=== PATIENT | female | born 1940 | race Caucasian/White ===

== ENCOUNTER 2020-06-27 11:54 | Outpatient (CLI) | payer MEDICARE, OTHER ==
--- NOTE | 2020-06-27 14:49 | RAD ---
PA AND LATERAL VIEWS CHEST: Date: 06/27/2020 HISTORY: Preoperative evaluation. FINDINGS: The heart size is borderline. No lobar consolidation, pneumothoraces, or pleural effusions are seen. There is fullness in the left hilar region consistent with hilar lymphadenopathy noted on the PET/CT of 06/13/2020. IMPRESSION: No acute process. POS: OFF
[2020-06-27 16:17] LABS: #Eosinphils 0.2 10x3/uL (0.0-0.5); #Monocytes 0.4 10x3/uL (0.0-1.1); #Neutrophils 2.4 10x3/uL (1.5-8.4); %Basophils 0.6 % (0.0-2.0); %Eosinophils 3.4 % (0.0-6.0); %Lymphocytes 35.6 % (18.0-47.0); %Monocytes 8.7 % (0.0-10.0); %Neutrophils 51.3 % (40.0-75.0); Hemoglobin 11.8 g/dL (12.0-16.0); Mean Corpuscular HGB CONC 32.1 G/DL (32.0-36.0); Mean Corpuscular Hemoglobin 31.9 PG (27.0-33.0); Mean Corpuscular Volume 99.5 fl (80.0-100.0); Mean Platelet Volume 9.2 fl (7.4-10.4); Platelet Count 220 10x3/uL (130-400); RBC Distribution Width 13.6 % (11.5-14.5); White Blood Cell (WBC) Count 4.7 10x3/uL (4.5-11.0)
[2020-06-27 16:24] LABS: Anion Gap 15 mmol/L (10-20); BUN (Urea Nitrogen) 11 mg/dL (9.8-20.1); Calc. Creatinine Clearance 0 mL/min (70-130); Calcium 9.1 mg/dL (7.8-10.44); Carbon Dioxide 24 mmol/L (23-31); Chloride 104 mmol/L (98-107); Estimated GFR-MDRD 58; Glucose 131 mg/dL (83-110); Potassium 3.9 mmol/L (3.5-5.1); Sodium 139 mmol/L (136-145)
[2020-06-28 12:58] LABS: SARS-CoV-2 MS2 Positive; SARS-CoV-2 N Gene Negative; SARS-CoV-2 S Gene Negative; SARS-CoV-2 by NAA Not Detected (NotDetected); SARS-CoV-2 orf1ab Negative
--- NOTE | 2020-06-28 21:07 | EKG ---
Test Reason : PREOP Blood Pressure : / mmHG Vent. Rate : 086 BPM Atrial Rate : 202 BPM P-R Int : 000 ms QRS Dur : 086 ms QT Int : 406 ms P-R-T Axes : 000 054 152 degrees QTc Int : 485 ms Atrial fibrillation Low voltage QRS Cannot rule out Anterior infarct , age undetermined Abnormal ECG No previous ECGs available Confirmed by Иван MAHARAJ ([id number]) on 06/28/2020 9:07:09 PM Referred By: Ramila THAKKAR Confirmed By:Иван MAHARAJ
== END 2020-06-27 11:55 | disposition home or self-care (01) ==
LOC: LABBT 11:54
PROVIDERS: ATTEND Specialist
DX: Z01.818 Encounter for other preprocedural examination (principal); Z20.828 Contact with and (suspected) exposure to other viral communicable diseases
CPT/HCPCS: 71046; 80048; 85025; 93005; U0003; 87635; 93010

== ENCOUNTER 2020-06-30 10:12 | Day surgery (SDC) | payer MEDICARE, OTHER ==
[2020-06-29 15:14] VITALS: BMI 31.1
[2020-06-30] MEDS ORDERED: Acetaminophen 500 MG TAB ONE (11:15)
[2020-06-30] MEDS ORDERED: Ketorolac Tromethamine 30 MG/ML VIAL ONE (11:15)
[2020-06-30] MEDS ORDERED: Bupivacaine PF 0.5% 30 ML VIAL ONE (11:18)
[2020-06-30] MEDS ORDERED: Lidocaine 2% w/Epinephrine 1:200K 20 ML VIAL ONE (11:18)
[2020-06-30] MEDS ORDERED: Midazolam HCl 2 mg/2 ml Vial ONE (11:19)
[2020-06-30] MEDS ORDERED: PROPOFOL 40 ML ONE (11:19)
[2020-06-30] MEDS ORDERED: Fentanyl 100 MCG/2 ML VIAL ONE (11:19)
[2020-06-30] MEDS ORDERED: Levofloxacin 500 mg/D5W 100 ml Premix Bag ONE (11:30)
--- NOTE | 2020-06-30 12:29 | OP ---
DATE OF PROCEDURE: 06/30/2020 PREOPERATIVE DIAGNOSIS: Lung cancer in need of antineoplastic chemotherapy access. POSTOPERATIVE DIAGNOSIS: Lung cancer in need of antineoplastic chemotherapy access. PROCEDURE PERFORMED: Right subclavian vein PowerPort, low-profile MediPort. ANESTHESIA: Intravenous sedation, local 0.25% Marcaine 30 mL mixed with 1% Xylocaine with epinephrine 20 mL. DESCRIPTION OF PROCEDURE: The patient was taken to the operating room, where under intravenous sedation, neck and chest prepared with ChloraPrep and draped in routine fashion. Local anesthetic infiltrated in the skin and subcutaneous tissue. Trocar catheter introduced into the right subclavian vein, obtained good return of venous blood and J-wire threaded, trocar catheter removed. Skin site was enlarged sharply and subcutaneous pocket created with blunt and sharp dissection, hemostasis using cautery. Dilator and Peel-Away sheath placed with J-wire in the superior vena cava. Dilator and J-wire removed. Catheter placed with Peel-Away sheath. Peel-Away sheath removed. Catheter tip placed in optimal position of the superior vena cava and catheter tailored to length, connected to the MediPort, placed in the subcutaneous pocket and secured with two interrupted suture of 3-0 Prolene. Subcutaneous tissue was approximated with 3-0 Monocryl, skin with subdermal 4-0 Monocryl and Woodlyn glue applied. MediPort accessed with a Rdz needle, aspirated blood, flushed with heparinized saline solution. Final fluoroscopic images revealed good line and port placement. The patient tolerated the procedure well. Job ID: [id number]
--- NOTE | 2020-06-30 12:41 | RAD ---
RADIOGRAPH CHEST 1 VIEW: DATE: 06/30/2020 TIME: 12:25 PM HISTORY: 80-year-old female status post MediPort placement COMPARISON: 06/27/2020 FINDINGS: There is a new right subclavian implantable vascular access port with distal tip overlying SVC. No pn eumothorax. Prominent interstitial markings, chronic. Focal opacity inferior and posterior to the left hilum was demonstrated by recent PET scan to represent a tumor mass in the superior segment of l eft lower lobe. Small left pleural effusion. Increased attenuation of base of left lower lobe medially, perhaps mild atelectasis, less likely pneumonia or aspiration. IMPRESSION: 1) status post right subclavian implantable vascular access port placement. 2) no pneumothorax.
== END 2020-06-30 13:05 | disposition home or self-care (01) ==
LOC: SDC 10:12
PROVIDERS: ATTEND Specialist
PROC: 0JH63WZ Insertion of Totally Implantable Vascular Access Device into Chest Subcutaneous Tissue and Fascia, Percutaneous Approach (ICD-10-PCS; principal; 2020-06-30)
PROC: 02HV33Z Insertion of Infusion Device into Superior Vena Cava, Percutaneous Approach (ICD-10-PCS; 2020-06-30)
PROC: B518ZZA Fluoroscopy of Superior Vena Cava, Guidance (ICD-10-PCS; 2020-06-30)
DX: C34.32 Malignant neoplasm of lower lobe, left bronchus or lung (principal); C77.1 Secondary and unspecified malignant neoplasm of intrathoracic lymph nodes; E78.5 Hyperlipidemia, unspecified; I25.10 Atherosclerotic heart disease of native coronary artery without angina pectoris; I48.91 Unspecified atrial fibrillation; I11.0 Hypertensive heart disease with heart failure; I50.9 Heart failure, unspecified; J43.9 Emphysema, unspecified; F32.9 Major depressive disorder, single episode, unspecified; F41.9 Anxiety disorder, unspecified; Z87.891 Personal history of nicotine dependence; Z79.899 Other long term (current) drug therapy; Z88.0 Allergy status to penicillin; Z88.6 Allergy status to analgesic agent; Z88.8 Allergy status to other drugs, medicaments and biological substances; Z91.041 Radiographic dye allergy status; Z95.5 Presence of coronary angioplasty implant and graft
CPT/HCPCS: 71045; J1642; J1885; J1956; J2250; J2704; J3010; S0020

== ENCOUNTER 2020-08-15 11:31 | Inpatient (IN) | payer MEDICARE, OTHER ==
[2020-08-15 12:30] LABS: White Blood Cell (WBC) Count 0.7 thou/uL (4.8-10.8)
[2020-08-15 12:43] LABS: ALT (SGPT) 7 U/L (8-55); AST (SGOT) 14 U/L (5-34); Albumin 3.5 g/dL (3.4-4.8); Alkaline Phosphatase 42 U/L (40-110); Anion Gap 17 mmol/L (10-20); BUN (Urea Nitrogen) 15 mg/dL (9.8-20.1); Calc. Creatinine Clearance 0 mL/min (70-130); Calcium 8.6 mg/dL (7.8-10.44); Carbon Dioxide 19 mmol/L (23-31); Chloride 103 mmol/L (98-107); Glucose 101 mg/dL (83-110); Lipase 6 U/L (8-78); Potassium 3.6 mmol/L (3.5-5.1); Protein, Total 6.5 g/dL (6.0-8.3); Sodium 135 mmol/L (136-145)
[2020-08-15 13:03] LABS: Band 40 % (5-11); Eosinophils 4 % (0-10); Hemoglobin 9.8 g/dL (12.0-16.0); Lymphocytes 16 % (21-51); MDiff Complete? YES; Mean Corpuscular HGB CONC 34.7 g/dL (32.0-36.0); Mean Corpuscular Hemoglobin 33.2 pg (27.0-31.0); Mean Corpuscular Volume 95.7 fL (78.0-98.0); Mean Platelet Volume 8.1 fL (7.4-10.4); Neutrophil 40 % (42-75); Platelet Count 90 thou/uL (130-400); Platelet Morphology Comment Appears Decreased; Polychromasia SLIGHT = 2-3 cells (100X) (0-2/hpf); RBC Distribution Width 14.6 % (11.5-14.5); Red Blood Cell (RBC) Count 2.96 mill/uL (4.20-5.40)
[2020-08-15] MEDS ORDERED: cefTRIAXone\\ROCEPHIN 2 GM VIAL ONE (13:22)
[2020-08-15] MEDS ORDERED: Ondansetron PF 4 MG/2 ML Vial ONE (13:22)
[2020-08-15] MEDS ORDERED: Cefepime 2 GM VIAL ONE (13:32)
[2020-08-15] MEDS ORDERED: Vancomycin 1 GM/200 ML BAG ONE (14:24)
[2020-08-15 15:44] LABS: Bilirubin Negative (Negative); Blood, Urine Negative (Negative); Clarity Clear (Clear); Glucose, Urine (Dipstick) Normal (Negative); Ketone, Urine Negative (Negative); Leukocyte Negative Leu/uL (Negative); Nitrite 2+ (Negative); Protein, Urine (Dipstick) 20 mg/dL (Neg-Trace); RBC/HPF 0-3 HPF (0-3); Specific Gravity, Urine 1.018 (1.002-1.036); Squamous Epithelial 0-3 HPF (0-3); Urobilinogen Normal mg/dL (Less than 2); WBC/HPF 0-3 HPF (0-3); pH, Urine 5.5 (5.0-9.0)
[2020-08-15 15:53] LABS: Bacteria/HPF 2+ HPF (None Seen)
--- NOTE | 2020-08-15 16:36 | PDOC.FPRHP ---
- History of Present Illness Chief Complaint: N/V/D History of Present Illness: 80yo F undergoing treatment for LLL non small cell lung cancer presented to ED after episodes of N/V/D this morning. Daughter who is nurse states that pt is receiving chemo and radiation. She has secondary esophagitis form this with limited PO intake and tends to have problems with hypovolemia. States she checked her orthostatics the other day and they were positive. Due to GI lossses she was concerned she would need additional fluids so brought her in. Dr. Lee was consulted and recommended fluids and home levoquin for UTI. However, while in ED she was found to have neutropenic fever and was in Afib RVR. She received abx, metoprolol, and fluids. ED Course: Received 2L NS, cefepime, vanc - Allergies/Adverse Reactions Allergies Allergy/AdvReac Type Severity Reaction Status Date / Time acetaminophen Allergy Rash Verified 06/29/20 15:14 [From Darvocet-N] iodine Allergy Rash Verified 06/29/20 15:14 Penicillins Allergy Rash Verified 06/29/20 15:14 propoxyphene [From Darvon] Allergy Rash Verified 06/29/20 15:14 - Home Medications Medication Instructions Recorded Confirmed Type ALPRAZolam 0.25 mg PO BID PRN 06/29/20 08/15/20 History Estradiol 2 mg PO DAILY 06/29/20 08/15/20 History HYDROcodone Bit/APAP 10/325 [[place] 1 tab PO Q6HR PRN 06/29/20 08/15/20 History 10/325] Lisinopril 10 mg PO QAM 06/29/20 08/15/20 History Omeprazole 20 mg PO DAILY PRN 06/29/20 08/15/20 History Furosemide [Lasix] 20 mg PO BID PRN 08/15/20 08/15/20 History Isosorbide Mononitrate [Isosorbide 30 mg PO DAILY 08/15/20 08/15/20 History Mononitrate ER] Levothyroxine Sodium [Synthroid] 125 mcg PO DAILY 08/15/20 08/15/20 History Ondansetron [Zofran ODT] 8 mg PO BID 08/15/20 08/15/20 History Pravastatin Sodium [Pravachol] 20 mg PO HS 08/15/20 08/15/20 History Temazepam 15 mg PO HS PRN 08/15/20 08/15/20 History buPROPion [Wellbutrin] 75 mg PO BID 08/15/20 08/15/20 History - History PMHx: HTN, COPD, left lower lobe non small cell lung cancer, hypothyroidism PSHx: tonsillectomy, back surgery, brain surgery, cholecystectomy, right finger amputation, hysterectomy, appendectomy, oopherectomy FHx: Non contributory Social: ppd smoker for >40 years, quit this year. denies alcohol or drugs - Review of Systems General: reports: weight/appetite/sleep changes. denies: fever/chills Eyes: denies: eye pain, vision changes ENT: denies: nasal congestion, rhinorrhea Respiratory: denies: cough, congestion, shortness of breath Cardiovascular: denies: chest pain, palpitation, edema Gastrointestinal: reports: nausea, vomiting, diarrhea Genitourinary: denies: incontinence, dysuria, polyuria Skin: denies: rashes, jaundice Musculoskeletal: denies: pain, tenderness Neurological: reports: weakness. denies: numbness Psychological: reports: anxiety, depression - Vital signs BP: 118/39, Pulse: 101, Resp: 20, Temp: 101.3 (Oral), Pain: 8, O2 sat: 96 on (Room Air) - Physical Exam Constitutional: NAD, awake, alert and oriented, well developed HEENT: EOMI, MMM -HEENT: Dry mucous membranes Neck: supple, FROM Heart: normal S1/S2 -Heart: Irregularly irregular, tachycardic Lungs: CTAB, no respiratory distress Abdomen: soft, non-tender Musculoskeletal: ROM grossly normal Skin: no rash/lesions, capillary refill <2 seconds Heme/Lymphatic: no unusual bruising or bleeding, no petechia Psychiatric: normal mood and affect, good judgment and insight, intact recent and remote memory FMR H&P: Results - Labs Result Diagrams: 08/15/20 12:00 08/15/20 12:00 Lab results: WBC 0.7 thou/uL (4.8-10.8) L* 08/15/20 12:00 Hgb 9.8 g/dL (12.0-16.0) L 08/15/20 12:00 Hct 28.4 % (36.0-47.0) L 08/15/20 12:00 MCV 95.7 fL (78.0-98.0) 08/15/20 12:00 Plt Count 90 thou/uL (130-400) L 08/15/20 12:00 Band Neuts % (Manual) 40 % (5-11) H 08/15/20 12:00 Sodium 135 mmol/L (136-145) L 08/15/20 12:00 Potassium 3.6 mmol/L (3.5-5.1) 08/15/20 12:00 Chloride 103 mmol/L (98-107) 08/15/20 12:00 Carbon Dioxide 19 mmol/L (23-31) L 08/15/20 12:00 BUN 15 mg/dL (9.8-20.1) 08/15/20 12:00 Creatinine 1.01 mg/dL (0.6-1.1) 08/15/20 12:00 Glucose 101 mg/dL (83-110) 08/15/20 12:00 Lactic Acid 1.8 mmol/L (0.5-2.2) 08/15/20 12:02 Calcium 8.6 mg/dL (7.8-10.44) 08/15/20 12:00 Total Bilirubin 1.0 mg/dL (0.2-1.2) 08/15/20 12:00 AST 14 U/L (5-34) 08/15/20 12:00 ALT 7 U/L (8-55) L 08/15/20 12:00 Alkaline Phosphatase 42 U/L (40-110) 08/15/20 12:00 Serum Total Protein 6.5 g/dL (6.0-8.3) 08/15/20 12:00 Albumin 3.5 g/dL (3.4-4.8) 08/15/20 12:00 Lipase 6 U/L (8-78) L 08/15/20 12:00 Urine Ketones Negative mg/dL (Negative) 08/15/20 15:30 Urine Blood Negative (Negative) 08/15/20 15:30 Urine Nitrite 2+ (Negative) A 08/15/20 15:30 Ur Leukocyte Esterase Negative Kodak/uL (Negative) 08/15/20 15:30 Urine RBC 0-3 HPF (0-3) 08/15/20 15:30 Urine WBC 0-3 HPF (0-3) 08/15/20 15:30 Ur Squamous Epith Cells 0-3 HPF (0-3) 08/15/20 15:30 Urine Bacteria 2+ HPF (None Seen) A 08/15/20 15:30 - Radiology Interpretation Chest x-ray Status: report reviewed by me FMR H&P: A/P - Plan Neutropenic Fever - Cefepime monotherapy for coverage due to high risk of complication - No obvious signs of infection - Dr. Lee, oncology, consulted Afib RVR - Hx of afib, not on any anticoagulation of beta vahid - Multiple hx of hemorrhage with anticoagulation - s/p 5mg IV metoprolol in ED, transition to 50mg PO BID - monitor rate, admit tele Hypovolemia - Orthostatic at home - DC imdur - S/p 2 L NS in ED - Maintenance at 150ml/hr - Pt not taking in oral fluids due to esophagitis Asymptomatic Bacteruria - 2+ bacteria, and nitrite - Do not feel this is a source of infection Hx of anxiety, depression, insomnia, HFrEF, chronic back pain - resume home rx VTE: Does not tolerate anticoagulation, SCD Diet: Regular IVF: LR 150ml Code: Full PCP: OOT Dispo: Admit to tele. Rate control. Abx for neutropenic fever. Appreciate onc recs. ELOS >48hr FMR H&P: Upper Level - Plan Date/Time: 08/15/20 1636 I, [], have evaluated this patient and agree with findings/plan as outlined by underwriting internship resident. Pertinent changes/additions are listed here. Addendum - Attending - Attending Attestation Date/Time: 08/16/20 0911 I personally evaluated the patient and discussed the management with Dr. Butcher. I agree with the History, Examination, Assessment and Plan documented above with any addition or exceptions noted below.
[2020-08-15] MEDS ORDERED: Lorazepam 2 MG/ML VIAL ONE (17:19)
[2020-08-15] MEDS ORDERED: HYDROcodone/Acetaminophen 5/325 mg Tablet ONE (17:19)
[2020-08-15] MEDS ORDERED: Metoprolol Tartrate 5 MG/5 ML VIAL ONE (17:20)
[2020-08-15] MEDS ORDERED: Acetaminophen 500 MG TAB ONE (17:20)
--- NOTE | 2020-08-15 17:25 | RAD ---
EXAM: Single view of the chest HISTORY: Nausea and vomiting. Cancer patient. Abdominal pain COMPARISON: 06/30/2020 FINDINGS: Single view of the chest shows an enlarged but stable cardiomediastinal silhouette. Stable bilateral pulmonary vascular enlargement is seen. Atherosclerotic calcifications are seen in the aorta. The Mediport is unchanged in position. Diffuse increased interstitial markings are present. No consolidation is seen. There is a calcified granuloma in the right lung base. Degenerative changes without hardware are seen in the spine. IMPRESSION: Cardiomegaly without evidence of acute cardiopulmonary disease
[2020-08-15] MEDS ORDERED: Ondansetron ODT 4 MG TAB SL PRN (20:30)
[2020-08-15] MEDS ORDERED: Sodium Chloride 0.9% 1,000 ML IV SCH (20:30)
[2020-08-15] MEDS ORDERED: Ondansetron PF 4 MG/2 ML Vial IVP PRN ×2 (20:30→21:13)
[2020-08-15] MEDS ORDERED: Temazepam 15 MG CAP PO PRN (21:00)
[2020-08-15] MEDS ORDERED: ALPRAZolam 0.25 MG TAB PO PRN (21:13)
[2020-08-15] MEDS ORDERED: Acetaminophen 325 MG TAB PO PRN (21:13)
[2020-08-15] MEDS ORDERED: HYDROcodone/Acetaminophen 5/325 mg Tablet PO PRN (21:13)
[2020-08-15] MEDS ORDERED: Ondansetron ODT 4 MG TAB PO PRN (21:13)
[2020-08-15] MEDS ORDERED: Lactated Ringer's 1,000 ML IV SCH (21:13)
[2020-08-15] MEDS ORDERED: Acetaminophen 650 MG Suppository PR PRN (21:13)
[2020-08-15] MEDS: Ondansetron ODT 4 MG TAB PO SCH (22:41)
[2020-08-15] MEDS: buPROPion 75 MG TAB PO SCH (22:41)
[2020-08-15] MEDS: Metoprolol Tartrate 50 MG TAB PO SCH (22:41)
[2020-08-15] MEDS: Simvastatin 10 MG TAB PO SCH (22:42)
[2020-08-15] MEDS: HYDROcodone/Acetaminophen 5/325 mg Tablet PO PRN (23:50)
[2020-08-16] MEDS: Cefepime 2 GM in Sodium Chloride 0.9% 100 ML IVPB SCH ×2 (01:36→14:47)
[2020-08-16] MEDS: HYDROcodone/Acetaminophen 5/325 mg Tablet PO PRN ×4 (04:31→19:47)
[2020-08-16 04:47] LABS: Hemoglobin 8.5 g/dL (12.0-16.0); Mean Corpuscular HGB CONC 34.8 g/dL (32.0-36.0); Mean Corpuscular Hemoglobin 33.3 pg (27.0-31.0); Mean Corpuscular Volume 95.4 fL (78.0-98.0); Platelet Count 88 thou/uL (130-400); RBC Distribution Width 14.9 % (11.5-14.5); Red Blood Cell (RBC) Count 2.57 mill/uL (4.20-5.40); White Blood Cell (WBC) Count 0.9 thou/uL (4.8-10.8)
[2020-08-16 05:04] LABS: Anion Gap 12 mmol/L (10-20); BUN (Urea Nitrogen) 12 mg/dL (9.8-20.1); Calc. Creatinine Clearance 55 mL/min (70-130); Calcium 7.7 mg/dL (7.8-10.44); Carbon Dioxide 21 mmol/L (23-31); Chloride 109 mmol/L (98-107); Glucose 97 mg/dL (83-110); Potassium 3.3 mmol/L (3.5-5.1); Sodium 139 mmol/L (136-145)
[2020-08-16 05:27] LABS: Band 34 % (5-11); Eosinophils 4 % (0-10); Lymphocytes 16 % (21-51); MDiff Complete? YES; Monocytes 12 % (0-10); Neutrophil 34 % (42-75); Platelet Morphology Comment Appears Decreased
[2020-08-16] MEDS ORDERED: Levothyroxine Sodium 125 MCG TAB PO SCH (06:00)
[2020-08-16 06:07] LABS: SARS-CoV-2 MS2 Positive; SARS-CoV-2 N Gene Negative; SARS-CoV-2 S Gene Negative; SARS-CoV-2 by NAA Not Detected (NotDetected); SARS-CoV-2 orf1ab Negative
--- NOTE | 2020-08-16 06:43 | PDOC.FM ---
- Subjective Subjective: Mrs. Capone is feeling well and wants to go home. She denies chills, N/V since arrival. She was able to drink some water and tolerate it. - Objective Vital Signs & Weight: Vital Signs (12 hours) Temp Pulse Resp BP Pulse Ox 08/16/20 03:51 97.7 F 85 20 115/56 L 97 08/15/20 23:36 96 08/15/20 18:51 98.9 F 101 H 16 119/63 96 Weight Weight 67.222 kg Result Diagrams: 08/16/20 04:04 08/16/20 04:04 Phys Exam - Physical Examination Constitutional: NAD Neck: supple Respiratory: clear to auscultation bilateral Cardiovascular: no significant murmur Rate-controlled AFib in 80-100s Gastrointestinal: soft, non-tender, no distention, positive bowel sounds Musculoskeletal: no edema Neurological: non-focal, moves all 4 limbs Psychiatric: normal affect, A&O x 3 Skin: no rash Dx/Plan - Plan Plan: This is an 80F who presented d/t N/V/D in the setting of chemo/radiation for lung CA; found to have neutropenic fever and Afib with RVR. Neutropenic Fever - Cefepime monotherapy for coverage due to high risk of complication - No obvious signs of infection. BCx, UCx pending - WBC 0.7 -> 0.9 - Afebrile since transfer to tele without Tylenol admin - Dr. Lee, oncology, consulted. Appreciate recs * Change to Levaquin on d/c Afib - Hx of afib, not on any anticoagulation or beta vahid * Hx of multiple hemorrhages with anticoagulation - Metoprolol 50mg PO BID - Home Lisinopril decreased to 5mg d/t addition of Metoprolol - Rate-controlled AFib in 80s-100, without RVR, since put on tele monitoring - monitor rate, admit to tele Hypovolemia - N/V/D with decreased PO intake d/t esophagitis - Orthostatic at home - DC imdur - mIVF at 150ml/hr - Strict I&Os. Can d/c if tolerating PO. Hypomagnesemia - Mg 1.5 - Mg sulfate to replete - am BMP to monitor Hypophosphatemia - Phos 2.3 - K-Phos to replete - am BMP to monitor Hypokalemia - K 3.3 - Same as above Asymptomatic Bacteruria - 2+ bacteria, and nitrite - Do not suspect this is the cause of fever - Cefepime Anemia - Hb 9.8 -> 8.5 - At last visit, Hb was 11.8 Diarrhea - Neg CDiff and Campylobacter - Stool lactoferrin elevated - Stool cx pending LLL non-small cell lung cancer with esophagitis On chemo and radiation. Source of esophagitis, resulting in N/V/D and decreased PO intake - Dr. Lee consulted in ED, appreciate recs. Hx of anxiety, depression, insomnia, HFrEF, chronic back pain - resume home rx VTE: Does not tolerate anticoagulation, SCD Diet: Regular IVF: LR 150ml Code: Full PCP: OOT Dispo: Discharge pending ability to tolerate PO.
[2020-08-16 07:30] LABS: Magnesium 1.5 mg/dL (1.6-2.6); Phosphorus 2.3 mg/dL (2.3-4.7)
[2020-08-16] MEDS: Metoprolol Tartrate 50 MG TAB PO SCH ×2 (08:50→19:47)
[2020-08-16] MEDS ORDERED: Lisinopril 10 MG TAB PO SCH (09:00)
[2020-08-16] MEDS ORDERED: Estradiol 1 MG TAB PO SCH (09:00)
[2020-08-16] MEDS ORDERED: FLU VACC QS2020-21(65YR UP)/PF 240 MCG/0.7 ML SYRINGE IM ONE (09:00)
[2020-08-16] MEDS ORDERED: Lisinopril 20 MG TAB PO SCH (09:00)
[2020-08-16] MEDS: buPROPion 75 MG TAB PO SCH ×2 (09:27→19:47)
[2020-08-16] MEDS: Ondansetron ODT 4 MG TAB PO SCH ×3 (09:27→19:48)
[2020-08-16 13:46] VITALS: BMI 27.5
--- NOTE | 2020-08-16 14:23 | PQF ---
Dear Dr. Baca Date: 08/16/20 Please exercise your independent, professional judgment in responding to the clarification form. Clinical indicators are provided on the bottom of this form for your review. Please check appropriate box(es): [ ] Sepsis due to: Due to: [ ] Device (please specify) [ ] Implant [ ] Graft [ ] Infusion Due to: [ ] Procedure (please specify) [ ] Severe sepsis with associated acute organ dysfunction: [ ] Acute Respiratory Failure [ ] Acute Kidney injury w/o ATN [ ] Acute Kidney Injury w ATN [ ] Encephalopathy (metabolic) (septic) [ ] Disseminated Intravascular Coagulopathy (DIC) [ ] Hepatic Failure [ ] Additional/Other: please specify: [ X ] Localized infection without sepsis [ ] SIRS due to non-infectious process (please specify etiology) [ ] with organ dysfunction [ ] without organ dysfunction [ ] Other diagnosis [ ] Unable to determine In addition, please specify: Present on Admission (POA): [ X ] Yes [ ] No [ ] Unable to determine For continuity of documentation, please document condition throughout progress notes and discharge summary. Thank You. To be completed by CDI/Coding staff for physician review: CLINICAL INDICATORS - SIGNS / SYMPTOMS / LABS / RESULTS AND LOCATION IN MR ER NOTE: PULSE 115 RR 25 TEMP 103.2 WBC 08/15: 0.7 BANDS 08/15: 40 RISK FACTORS / RESULTS AND LOCATION IN MR CHEMO AND RADIATION TREATMENT FOR LUNG CANCER (PN 08/16- [facility]) URINE CULTURE- GRAM NEGATIVE RODS (SEE LAB 08/15) ADVANCED AGE TREATMENTS / RESULTS AND LOCATION IN MR IV FLUIDS (ER-08/15) IV VANCOMYCIN (ER) IV CEFEPIME (ER-PRESENT) BLOOD, URINE AND STOOL CULTURES 08/15 CDS Signature: Richelle Holloway RN Phone #: [phone] Date: 08/16/20 This is a permanent part of the Medical Record [facility]
[2020-08-16] MEDS: Lidocaine Viscous Sol 2% 15 ml UD Cup SSW PRN ×2 (14:56→17:51)
[2020-08-16] MEDS: Sucralfate 1 GM TAB PO SCH ×2 (16:16→19:46)
[2020-08-16 17:05] VITALS: BP 125/46; TEMP 98.4
--- NOTE | 2020-08-16 17:20 | CON ---
DATE OF CONSULTATION: REASON FOR CONSULT: Neutropenic fever. HISTORY OF PRESENT ILLNESS: Ms. 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 She is currently receiving chemoradiotherapy with carboplatin and Taxol. Her last dose of chemotherapy was on August 09. She has been struggling with neutropenia throughout treatment and is on reduced dose chemotherapy. She presented to the emergency room yesterday with complaints of nausea, vomiting, and diarrhea. She has been struggling with secondary esophagitis due to radiation. She was in atrial fibrillation with RVR. She had a white count of 700. She was admitted for further treatment. She appears to have no fevers since arrival. She has been started on empiric antibiotics with cefepime. The patient was seen at bedside. Her primary complaint is esophageal pain. She has had poor p.o. intake. PAST MEDICAL HISTORY: 1. IIIA lung cancer. 2. Hypertension. 3. History of AL. 4. Coronary artery disease. 5. Atrial fibrillation. 6. Peripheral vascular disease. 7. Hyperlipidemia. 8. Anxiety and depression. 9. COPD. 10. Hypothyroidism. PAST SURGICAL HISTORY: Left lower lobe biopsy. ALLERGIES: TO TYLENOL, IODINE, PENICILLIN, DARVON. HOME MEDICATIONS: 1. Alprazolam. 2. Estradiol. 3. Isosorbide mononitrate. 4. Lasix. 5. Lisinopril. 6. [place]. 7. Prilosec. 8. Pravachol. 9. Synthroid. 10. Temazepam. 11. Wellbutrin. 12. Zofran. FAMILY HISTORY: She had an aunt with breast cancer. SOCIAL HISTORY: . Has 3 children. Lives with a daughter. 100 plus pack-year history of smoking, quit in May. No alcohol or illicit drug use. REVIEW OF SYSTEMS: A 12-point review of systems is negative except for noted in HPI. PHYSICAL EXAMINATION: VITAL SIGNS: Temperature is 98.3, pulse is 82, respiratory rate 17, blood pressure is 118/59. GENERAL: She is a well-developed, well-nourished female, in no acute distress. HEENT: Normocephalic, atraumatic. Pupils are equal and reactive to light. NECK: Supple. CV: Regular rate and rhythm. LUNGS: Clear anterior. ABDOMEN: Soft and nontender. EXTREMITIES: No clubbing or cyanosis. SKIN: No rash. HEMATOLOGICAL: No petechiae or purpura. NEUROLOGIC: Nonfocal. PERTINENT LABORATORY DATA AND X-RAYS: Current WBCs 0.9, hemoglobin 8.5, hematocrit 24.5, platelet count 88,000, 34% neutrophils, 34% bands, 16% lymphocytes. Sodium 139, potassium 3.3, chloride 109, CO2 is 21, BUN is 12, creatinine 0.84, calcium 7.7, lactic acid 1.8, bilirubin 1, AST is 14, ALT 7, alkaline phosphatase is 42, serum total protein 6.5, albumin 3.5, globulin 3, lipase 6. Urine showed 2+ bacteria, 2+ nitrite. COVID PCR negative. ASSESSMENT: 1. Lung cancer, on concurrent chemoradiotherapy. 2. Neutropenic fever. 3. Radiation esophagitis. DISCUSSION: The patient's primary complaint is her esophageal pain. We will add Carafate for esophagitis and continue Protonix. She has struggled with neutropenia throughout treatment despite being on reduced dose chemotherapy. She cannot receive any Neupogen or Neulasta at this time. I will just continue to monitor. She is on empiric antibiotics. Hopefully, she will increase her p.o. intake and improve over the next several days and can be discharged home to follow up in the clinic. Thank you for the consult. Job ID: [id number]
[2020-08-16] MEDS: Simvastatin 10 MG TAB PO SCH (19:46)
[2020-08-17] MEDS ORDERED: Lisinopril 5 MG TAB PO SCH (09:00)
--- NOTE | 2020-08-17 18:25 | DIS ---
DATE OF ADMISSION: 08/15/2020 DATE OF DISCHARGE: 08/16/2020 RESIDENT: Shadia Lara MD ADMITTING ATTENDING: Jacobo Langley MD DISCHARGE ATTENDING: Elliott Dallas MD CONSULT: Oncology, Oscar Lee MD/Sbara Cash NP (08/15). PROCEDURE: Chest x-ray (08/15). PRIMARY DIAGNOSES: Atrial fibrillation with rapid ventricular response, urinary tract infection, hypovolemia/orthostatic hypotension, neutropenic fever. SECONDARY DIAGNOSES: Non-small cell lung cancer on chemo and radiation with esophagitis, anemia, chronic pain, coronary artery disease, thyroid disease. DISCHARGE MEDICATIONS: 1. Levaquin 500 mg p.o. x10 days. 2. Metoprolol tartrate 50 mg p.o. b.i.d. 3. Viscous lidocaine 15 mL swish and swallow q.3h p.r.n. 4. Lisinopril 5 mg p.o. daily. 5. Omeprazole 20 mg p.o. daily p.r.n. 6. Estradiol 2 mg p.o. daily. 7. [place] 10/325 one tab p.o. q.6h p.r.n. 8. Alprazolam 0.25 mg p.o. b.i.d. p.r.n. 9. Levothyroxine 125 mcg p.o. daily. 10. Temazepam 15 mg p.o. at bedtime p.r.n. 11. Zofran 8 mg p.o. b.i.d. 12. Furosemide 20 mg p.o. b.i.d. p.r.n. 13. Bupropion 75 mg p.o. b.i.d. 14. Pravastatin 20 mg p.o. at bedtime. Discontinued medications: 1. Lisinopril 10 mg p.o. q.a.m. 2. Imdur 30 mg p.o. daily. HISTORY OF PRESENT ILLNESS/HOSPITAL COURSE: This is an 80-year-old female, who presented to the ED after multiple episodes of nausea/vomiting/diarrhea earlier in the morning. The patient is known to have esophagitis caused by the chemo and radiation that she is receiving to treat her non-small cell lung cancer. As such, she has limited p.o. intake and has recurrent issues with hypovolemia. Per the daughter, who is a nurse, she had positive orthostatic vitals the day before. Due to her GI losses, the daughter was concerned that the patient would need additional fluids and brought her to the ED. Dr. Lee was consulted from the ED and recommended fluids as well as home Levaquin for a UTI found incidentally on urinalysis. While in the ED, she was found to have a neutropenic fever and was in AFib with RVR, so she was admitted. She was given cefepime, vanc, metoprolol, and fluids in the ED. Aside from her asymptomatic bacteriuria, there were no other obvious signs of infection causing neutropenic fever. The patient had a history of AFib and was not on any anticoagulation due to a history of multiple hemorrhages when on anticoagulation. The patient was also not on a beta vahid, so she was started on 50 mg metoprolol and admitted to tele. During her entire hospitalization on the telemonitor, she continued to be in AFib but without RVR. In regard to her hypovolemia, her Imdur was discontinued, she was put on maintenance fluids after a 2-L bolus in the ED, and she was given viscous lidocaine prior to meals, which allowed her to consume food and drink and tolerated it well. UA on admission indicated a UTI, but the patient was asymptomatic. Regardless, given the risk of infection as a result of her neutropenia, the patient was started on cefepime. Prior to discharge, the patient was transitioned from cefepime to Levaquin as recommended by Dr. Lee. DISPOSITION: Stable. DISCHARGE INSTRUCTIONS: Location: Home. Diet: Regular. Activity: As tolerated. Followup: The patient is encouraged to follow up with her PCP in 7 to 10 days after discharge. Patient is also encouraged to follow up with her oncologist, Dr. Lee, in 3 to 5 days. Job ID: [id number]
== END 2020-08-16 19:59 | disposition home or self-care (01) | DRG 809 ==
LOC: ERS 11:31 → 2NO 16:34 → OBSVTOIN 21:13
PROVIDERS: ADMIT Family Medicine; ATTEND Family Medicine
DX: D70.9 Neutropenia, unspecified (principal); C34.32 Malignant neoplasm of lower lobe, left bronchus or lung; N39.0 Urinary tract infection, site not specified; I50.20 Unspecified systolic (congestive) heart failure; J44.9 Chronic obstructive pulmonary disease, unspecified; E03.9 Hypothyroidism, unspecified; E86.1 Hypovolemia; R50.81 Fever presenting with conditions classified elsewhere; G47.00 Insomnia, unspecified; F41.9 Anxiety disorder, unspecified; F32.9 Major depressive disorder, single episode, unspecified; E87.6 Hypokalemia; D64.9 Anemia, unspecified; R19.7 Diarrhea, unspecified; K20.90 Esophagitis, unspecified without bleeding; E83.42 Hypomagnesemia; E83.39 Other disorders of phosphorus metabolism; Z20.828 Contact with and (suspected) exposure to other viral communicable diseases; T45.1X5A Adverse effect of antineoplastic and immunosuppressive drugs, initial encounter; I95.1 Orthostatic hypotension; I25.10 Atherosclerotic heart disease of native coronary artery without angina pectoris; I11.0 Hypertensive heart disease with heart failure; G89.29 Other chronic pain; I48.91 Unspecified atrial fibrillation; Z90.89 Acquired absence of other organs; Z90.49 Acquired absence of other specified parts of digestive tract; Z88.0 Allergy status to penicillin; Z91.041 Radiographic dye allergy status; Z90.710 Acquired absence of both cervix and uterus; Z89.021 Acquired absence of right finger(s); Z90.721 Acquired absence of ovaries, unilateral; Z87.891 Personal history of nicotine dependence; I25.2 Old myocardial infarction
CPT/HCPCS: 36415; 51701; 71045; 77386; 80048; 80053; 81003; 81015; 83605; 83630; 83690; 83735; 84100; 85025; 87040; 87045; 87046; 87077; 87086; 87186; 87324; 87427; 87449; 87635; 93005; 96365; 96367; 96375; J0692; J0696; J2060; J2405; J3370; J3490; Q0162; U0003

== ENCOUNTER 2020-09-15 16:40 | Inpatient (IN) | payer MEDICARE, OTHER ==
[2020-09-15] MEDS ORDERED: Ondansetron PF 4 MG/2 ML Vial ONE (17:38)
[2020-09-15 17:40] LABS: #Eosinphils 0.1 thou/uL (0.0-0.7); #Lymphocytes 0.8 thou/uL (1.20-3.40); #Monocytes 0.4 thou/uL (0.11-0.59); #Neutrophils 3.4 thou/uL (1.40-6.50); %Basophils 0.1 % (0.0-1.0); %Eosinophils 1.9 % (0.0-10.0); %Lymphocytes 16.2 % (21.0-51.0); %Monocytes 9.4 % (0.0-10.0); %Neutrophils 72.5 % (42.0-75.0); Hemoglobin 9.8 g/dL (12.0-16.0); Mean Corpuscular HGB CONC 32.9 g/dL (32.0-36.0); Mean Corpuscular Hemoglobin 34.2 pg (27.0-31.0); Mean Platelet Volume 7.8 fL (7.4-10.4); Platelet Count 150 thou/uL (130-400); RBC Distribution Width 16.9 % (11.5-14.5); Red Blood Cell (RBC) Count 2.86 mill/uL (4.20-5.40); White Blood Cell (WBC) Count 4.6 thou/uL (4.8-10.8)
[2020-09-15] MEDS ORDERED: Morphine 2 MG/ML VIAL ONE (17:46)
[2020-09-15 18:02] LABS: ALT (SGPT) Less than 7 U/L (8-55); AST (SGOT) 14 U/L (5-34); Albumin 3.2 g/dL (3.4-4.8); Alkaline Phosphatase 45 U/L (40-110); Anion Gap 12 mmol/L (10-20); BUN (Urea Nitrogen) 12 mg/dL (9.8-20.1); Bilirubin, Total 1.1 mg/dL (0.2-1.2); CK (CPK) 19 U/L (29-168); Calc. Creatinine Clearance 0 mL/min (70-130); Calcium 7.9 mg/dL (7.8-10.44); Carbon Dioxide 26 mmol/L (23-31); Chloride 105 mmol/L (98-107); Globulin 2.4 g/dL (2.4-3.5); Glucose 124 mg/dL (83-110); Magnesium 1.9 mg/dL (1.6-2.6); Potassium 3.3 mmol/L (3.5-5.1); Protein, Total 5.6 g/dL (5.8-8.1); Sodium 140 mmol/L (136-145)
[2020-09-15] MEDS ORDERED: Morphine 2 MG/ML VIAL SLOW IVP PRN (20:55)
[2020-09-15] MEDS ORDERED: Acetaminophen 650 MG Suppository PR PRN (21:09)
[2020-09-15] MEDS ORDERED: Lactated Ringer's 1,000 ML IV SCH (21:09)
[2020-09-15] MEDS ORDERED: Acetaminophen 325 MG TAB PO PRN (21:09)
[2020-09-15 21:30] LABS: Troponin I 0.012 ng/mL (< 0.028)
[2020-09-15] MEDS ORDERED: Ondansetron PF 4 MG/2 ML Vial IVP PRN (22:03)
[2020-09-15 23:02] VITALS: BMI 28.0
[2020-09-16] MEDS ORDERED: Potassium Chloride 20 MEQ in Lactated Ringer's 1,000 ML IV SCH (00:30)
[2020-09-16] MEDS: Morphine 4 MG/ML VIAL SLOW IVP PRN ×3 (01:51→15:11)
[2020-09-16] MEDS: Enoxaparin Sodium 40 MG/0.4 ML SYRINGE SC SCH ×2 (08:40→08:51)
[2020-09-16] MEDS: Pantoprazole 40 MG VIAL IVP SCH (08:40)
[2020-09-16] MEDS: Metoprolol Tartrate 50 MG TAB PO SCH ×2 (10:20→20:25)
[2020-09-16] MEDS: Calcium Carbonate 500 MG ChewTAB PO PRN (11:45)
[2020-09-16] MEDS: Lidocaine Viscous Sol 2% 15 ml UD Cup SSW PRN ×2 (11:47→20:24)
[2020-09-16] MEDS: Morphine 2 MG/ML VIAL SLOW IVP PRN (20:22)
[2020-09-17] MEDS: Morphine 4 MG/ML VIAL SLOW IVP PRN ×2 (06:20→22:50)
[2020-09-17] MEDS ORDERED: ALPRAZolam 0.25 MG TAB PO PRN (08:10)
[2020-09-17] MEDS: Pantoprazole 40 MG VIAL IVP SCH (08:55)
[2020-09-17] MEDS: buPROPion 75 MG TAB PO SCH ×2 (08:55→22:00)
[2020-09-17] MEDS: Estradiol 1 MG TAB PO SCH (08:55)
[2020-09-17] MEDS: Lidocaine Viscous Sol 2% 15 ml UD Cup SSW PRN (08:55)
[2020-09-17] MEDS: Levothyroxine Sodium 125 MCG TAB PO SCH (08:55)
[2020-09-17] MEDS: Metoprolol Tartrate 50 MG TAB PO SCH ×2 (08:55→22:00)
[2020-09-17] MEDS ORDERED: Non-Formulary Item 1 EACH (Estradiol [Estradiol] 2 MG Tablet) PO SCH (09:00)
[2020-09-17] MEDS: Morphine 2 MG/ML VIAL SLOW IVP PRN ×2 (11:25→18:28)
[2020-09-17] MEDS ORDERED: HYDROcodone/Acetaminophen 10/325 mg Tablet PO SCH (14:30)
[2020-09-17] MEDS ORDERED: fentaNYL 50 mcg/hour Patch TD SCH (16:45)
[2020-09-17 17:44] LABS: SARS-CoV-2 PCR NAA for Saliva Not Detected (NotDetected)
[2020-09-17] MEDS ORDERED: Pravastatin Sodium 20 MG TAB PO SCH (21:00)
[2020-09-17] MEDS: Simvastatin 10 MG TAB PO SCH (22:00)
[2020-09-17] MEDS: Calcium Carbonate 500 MG ChewTAB PO PRN (22:50)
[2020-09-18] MEDS: Metoprolol Tartrate 50 MG TAB PO SCH (08:16)
[2020-09-18] MEDS: buPROPion 75 MG TAB PO SCH ×2 (08:16→20:57)
[2020-09-18] MEDS: Levothyroxine Sodium 125 MCG TAB PO SCH (08:17)
[2020-09-18] MEDS: Estradiol 1 MG TAB PO SCH (08:17)
[2020-09-18] MEDS: Pantoprazole 40 MG VIAL IVP SCH (08:17)
[2020-09-18] MEDS ORDERED: Lidocaine 2% Viscous Solution 10 ML, Aluminum & Magnesium Hydroxide 30 ML SSW PRN ×2 (10:52→11:06)
[2020-09-18] MEDS ORDERED: Polyethylene Glycol 3350 17 GM Packet PO SCH (11:15)
[2020-09-18] MEDS: Morphine 2 MG/ML VIAL SLOW IVP PRN (12:38)
[2020-09-18] MEDS: Morphine 4 MG/ML VIAL SLOW IVP PRN (18:22)
[2020-09-18] MEDS: Carvedilol 3.125 MG TAB PO SCH (20:57)
[2020-09-18] MEDS: Simvastatin 10 MG TAB PO SCH (20:57)
[2020-09-19 08:15] LABS: #Eosinphils 0.1 thou/uL (0.0-0.7); #Lymphocytes 0.8 thou/uL (1.20-3.40); #Monocytes 0.4 thou/uL (0.11-0.59); #Neutrophils 2.5 thou/uL (1.40-6.50); %Eosinophils 2.5 % (0.0-10.0); %Lymphocytes 20.9 % (21.0-51.0); %Monocytes 10.9 % (0.0-10.0); %Neutrophils 65.7 % (42.0-75.0); Hemoglobin 9.2 g/dL (12.0-16.0); Hypochromia SLIGHT = 6-15 cells (100X) (0-5/hpf); MDiff Complete? YES; Macrocytosis SLIGHT = 6-15 cells (100X) (0-5/hpf); Mean Corpuscular HGB CONC 33.7 g/dL (32.0-36.0); Mean Corpuscular Hemoglobin 35.6 pg (27.0-31.0); Mean Platelet Volume 8.2 fL (7.4-10.4); Platelet Count 119 thou/uL (130-400); Platelet Morphology Comment Appears Decreased; Polychromasia SLIGHT = 2-3 cells (100X) (0-2/hpf); RBC Distribution Width 16.7 % (11.5-14.5); Red Blood Cell (RBC) Count 2.59 mill/uL (4.20-5.40); Tear Drops SLIGHT = 2-5 cells (100X) (0-1/hpf); White Blood Cell (WBC) Count 3.8 thou/uL (4.8-10.8)
[2020-09-19 08:27] LABS: Anion Gap 11 mmol/L (10-20); BUN (Urea Nitrogen) 8 mg/dL (9.8-20.1); Calc. Creatinine Clearance 64 mL/min (70-130); Calcium 8.3 mg/dL (7.8-10.44); Carbon Dioxide 27 mmol/L (23-31); Chloride 103 mmol/L (98-107); Glucose 89 mg/dL (83-110); Sodium 138 mmol/L (136-145)
[2020-09-19] MEDS ORDERED: Lidocaine 2% Viscous Solution 10 ML, Aluminum & Magnesium Hydroxide 30 ML SSW SCH (09:00)
[2020-09-19] MEDS ORDERED: Potassium Chloride 20 MEQ TAB PO SCH (09:15)
[2020-09-19] MEDS ORDERED: Potassium Chloride 20 MEQ in Premix Bag 1 BAG IVPB SCH (09:15)
[2020-09-19] MEDS: Morphine 4 MG/ML VIAL SLOW IVP PRN (09:20)
[2020-09-19] MEDS: Pantoprazole 40 MG VIAL IVP SCH ×2 (09:22→20:19)
[2020-09-19] MEDS: Aspirin 81 mg Enteric Coated Tablet PO SCH (09:22)
[2020-09-19] MEDS: Polyethylene Glycol 3350 17 GM Packet PO SCH (09:22)
[2020-09-19] MEDS ORDERED: HYDROcodone/Acetaminophen 5/325 mg Tablet PO PRN (09:22)
[2020-09-19] MEDS: Sucralfate 1 GM TAB PO SCH ×4 (09:22→20:19)
[2020-09-19] MEDS: buPROPion 75 MG TAB PO SCH ×2 (09:23→20:20)
[2020-09-19] MEDS: Levothyroxine Sodium 125 MCG TAB PO SCH (09:23)
[2020-09-19] MEDS: Carvedilol 3.125 MG TAB PO SCH ×2 (09:23→20:20)
[2020-09-19] MEDS ORDERED: Sodium Chloride 0.9% (PF) 10 ML VIAL FS PRN (09:30)
[2020-09-19] MEDS: Lidocaine 2% Viscous Solution 10 ML, Aluminum & Magnesium Hydroxide 30 ML SSW SCH ×2 (11:13→17:23)
[2020-09-19] MEDS: HYDROcodone/Acetaminophen 10/325 mg Tablet PO PRN ×3 (11:58→22:25)
[2020-09-19] MEDS ORDERED: Fluconazole 10 mg/ml Oral Suspension PO SCH (14:45)
[2020-09-19] MEDS ORDERED: Fluconazole 40 mg/ml Oral Suspension PO SCH (15:00)
[2020-09-19] MEDS: Potassium Chloride 20 MEQ TAB PO SCH (17:24)
[2020-09-19] MEDS: Simvastatin 10 MG TAB PO SCH (20:20)
[2020-09-20] MEDS: Lidocaine 2% Viscous Solution 10 ML, Aluminum & Magnesium Hydroxide 30 ML SSW SCH ×3 (01:00→11:51)
[2020-09-20 07:50] LABS: Anion Gap 12 mmol/L (10-20); BUN (Urea Nitrogen) 7 mg/dL (9.8-20.1); Calc. Creatinine Clearance 65 mL/min (70-130); Calcium 8.3 mg/dL (7.8-10.44); Carbon Dioxide 27 mmol/L (23-31); Chloride 102 mmol/L (98-107); Glucose 97 mg/dL (83-110); Potassium 3.3 mmol/L (3.5-5.1); Sodium 138 mmol/L (136-145)
[2020-09-20] MEDS ORDERED: Spironolactone 25 MG TAB PO SCH (08:00)
[2020-09-20] MEDS: Pantoprazole 40 MG VIAL IVP SCH (08:53)
[2020-09-20] MEDS: Polyethylene Glycol 3350 17 GM Packet PO SCH (08:53)
[2020-09-20] MEDS: Carvedilol 3.125 MG TAB PO SCH (08:54)
[2020-09-20] MEDS: Aspirin 81 mg Enteric Coated Tablet PO SCH (08:54)
[2020-09-20] MEDS: Levothyroxine Sodium 125 MCG TAB PO SCH (08:54)
[2020-09-20] MEDS: Potassium Chloride 20 MEQ TAB PO SCH ×2 (08:54→17:08)
[2020-09-20] MEDS: buPROPion 75 MG TAB PO SCH (08:54)
[2020-09-20] MEDS: Sucralfate 1 GM TAB PO SCH ×3 (08:54→17:08)
[2020-09-20] MEDS ORDERED: Fluconazole 10 mg/ml Oral Suspension PO SCH (09:00)
[2020-09-20] MEDS ORDERED: Potassium Chloride 20 MEQ in Premix Bag 1 BAG IVPB SCH (09:00)
[2020-09-20] MEDS ORDERED: Fluconazole 40 mg/ml Oral Suspension PO SCH (09:00)
[2020-09-20] MEDS: HYDROcodone/Acetaminophen 10/325 mg Tablet PO PRN ×3 (09:05→17:08)
[2020-09-20] MEDS ORDERED: HYDROcodone/Acetaminophen 5/325 mg Tablet PO PRN (09:42)
[2020-09-20] MEDS ORDERED: Fluconazole 100 MG TAB PO SCH (14:00)
[2020-09-20 16:15] VITALS: BP 134/72; TEMP 97.8
== END 2020-09-20 18:27 | DRG 391 ==
LOC: ERS 16:40 → 2NO 19:49 → OBSVTOIN 09-17 14:51
PROVIDERS: ADMIT Emergency Medicine; ATTEND Emergency Medicine
DX: K20.80 Other esophagitis without bleeding (principal); J96.01 Acute respiratory failure with hypoxia; C34.32 Malignant neoplasm of lower lobe, left bronchus or lung; I48.20 Chronic atrial fibrillation, unspecified; I42.9 Cardiomyopathy, unspecified; Z20.822 Contact with and (suspected) exposure to COVID-19; Z66 Do not resuscitate; K29.70 Gastritis, unspecified, without bleeding; E86.0 Dehydration; E03.9 Hypothyroidism, unspecified; I10 Essential (primary) hypertension; J43.9 Emphysema, unspecified; F41.9 Anxiety disorder, unspecified; T45.1X5A Adverse effect of antineoplastic and immunosuppressive drugs, initial encounter; E87.6 Hypokalemia; Z88.6 Allergy status to analgesic agent; Z88.0 Allergy status to penicillin; Z79.899 Other long term (current) drug therapy; Z79.890 Hormone replacement therapy; Z90.710 Acquired absence of both cervix and uterus; Z90.721 Acquired absence of ovaries, unilateral; Z82.49 Family history of ischemic heart disease and other diseases of the circulatory system; Z83.3 Family history of diabetes mellitus; Z87.891 Personal history of nicotine dependence; Z91.018 Allergy to other foods
CPT/HCPCS: 36415; 71045; 80048; 80053; 82550; 83605; 83690; 83735; 84484; 85025; 87635; 93005; 93306; 96374; 96375; 96376; C9113; G0378; J1650; J2270; J2405; J3480; J7120; U0003; U0005